=== PATIENT | female | born 1995 | race Hispanic/Latino ===

== ENCOUNTER 2021-08-22 15:31 | Day surgery (SDC) | payer OTHER ==
[2021-08-22 16:56] VITALS: BMI 26.9
[2021-08-22] MEDS ORDERED: hydrALAZINE 20 MG/ML VIAL SLOW IVP PRN (17:15)
== END 2021-08-22 18:08 | disposition home or self-care (01) ==
LOC: CSHLD/OP 15:31
PROVIDERS: ATTEND Obstetrics & Gynecology
DX: O36.8330 Maternal care for abnormalities of the fetal heart rate or rhythm, third trimester, not applicable or unspecified (principal); O09.33 Supervision of pregnancy with insufficient antenatal care, third trimester; O99.820 Streptococcus B carrier state complicating pregnancy; Z3A.38 38 weeks gestation of pregnancy; Z86.16 Personal history of COVID-19
CPT/HCPCS: 76819

== ENCOUNTER 2021-08-30 22:24 | Inpatient (IN) | payer OTHER, SELFPAY ==
[2021-08-30 22:39] VITALS: BMI 32.5
[2021-08-30] MEDS ORDERED: hydrALAZINE 20 MG/ML VIAL SLOW IVP PRN (23:19)
[2021-08-30] MEDS ORDERED: Ondansetron PF 4 MG/2 ML Vial IVP PRN (23:19)
[2021-08-30] MEDS ORDERED: Lidocaine 1% (PF) 30 ML VIAL SC PRN (23:19)
[2021-08-30] MEDS ORDERED: Ibuprofen 800 MG TAB PO PRN (23:19)
[2021-08-30] MEDS ORDERED: Carboprost 250 MCG/ML AMP IM PRN (23:19)
[2021-08-30] MEDS ORDERED: Misoprostol 200 MCG TAB PR PRN (23:19)
[2021-08-30] MEDS ORDERED: Acetaminophen 500 MG TAB PO PRN (23:19)
[2021-08-30] MEDS ORDERED: Methylergonovine 0.2 MG/ML VIAL IM PRN (23:19)
[2021-08-30] MEDS ORDERED: Promethazine HCl 25 MG/ML VIAL IM PRN (23:19)
[2021-08-30] MEDS ORDERED: Penicillin G Potassium 5 MILL.UNITS in Sodium Chloride 0.9% 100 ML IVPB SCH (23:30)
[2021-08-30] MEDS ORDERED: Lactated Ringer's 1,000 ML IV SCH (23:30)
[2021-08-30] MEDS ORDERED: NS w/ Oxytocin 30 units 500 ML IV SCH (23:30)
[2021-08-30] MEDS ORDERED: Penicillin G Potassium 5 MILL.UNITS VIAL ONE (23:36)
[2021-08-30 23:54] LABS: Hemoglobin 13.6 g/dL (12.0-15.5); Mean Corpuscular Hemoglobin 26.9 pg (27.0-33.0); Mean Corpuscular Volume 81.6 fl (81.6-98.3); Mean Platelet Volume 11.4 fl (7.4-10.4); Platelet Count 215 10x3/uL (150-450); RBC Distribution Width 14.7 % (11.5-14.5); Red Blood Cell (RBC) Count 5.05 10x6/uL (3.90-5.03); White Blood Cell (WBC) Count 6.9 10x3/uL (3.5-10.5)
[2021-08-31 00:20] LABS: SARS-CoV-2 NAA Rapid Test Not Detected (NotDetected)
[2021-08-31 00:23] LABS: Syphilis Antibody Nonreactive (Nonreactive); Syphilis Antibody Index 0.04 S/CO (<1.00 Non-Reactive)
[2021-08-31 00:42] LABS: Hep B Surf Ag Non-Reactive S/CO (NonReactive)
[2021-08-31 00:46] LABS: HBSAg Index 0.21 S/CO (0-0.99)
[2021-08-31] MEDS ORDERED: Methylergonovine 0.2 MG/ML VIAL ONE (02:46)
[2021-08-31] MEDS ORDERED: Misoprostol 200 MCG TAB ONE (02:46)
[2021-08-31] MEDS: NS w/ Oxytocin 30 units 500 ML IV SCH ×2 (02:48→04:52)
[2021-08-31] MEDS ORDERED: Penicillin G 2.5 MILL.units 2.5 MILL.UNITS in Premix Bag 1 BAG IVPB SCH (03:30)
[2021-08-31] MEDS ORDERED: Ondansetron PF 4 MG/2 ML Vial IVP PRN (05:57)
[2021-08-31] MEDS ORDERED: Promethazine HCl 25 MG/ML VIAL IM PRN (05:57)
[2021-08-31] MEDS ORDERED: Benzocaine-Menthol 82.5 ML CAN TOP PRN (05:57)
[2021-08-31] MEDS ORDERED: NS w/ Oxytocin 30 units 500 ML IV SCH (05:57)
[2021-08-31] MEDS ORDERED: Preparation H Ointment 28 GM TUBE PR PRN (05:57)
[2021-08-31] MEDS ORDERED: Boostrix 0.5 ML (Tdap) VIAL IM ONE (05:57)
[2021-08-31] MEDS ORDERED: Methylergonovine 0.2 MG/ML VIAL IM PRN (05:57)
[2021-08-31] MEDS ORDERED: hydrALAZINE 20 MG/ML VIAL SLOW IVP PRN (05:57)
[2021-08-31] MEDS ORDERED: Milk Of Magnesia 30 ML UDCUP PO PRN (05:57)
[2021-08-31] MEDS ORDERED: Misoprostol 200 MCG TAB VAG PRN (05:57)
[2021-08-31] MEDS ORDERED: Bisacodyl 10 MG SUPP PR PRN (05:57)
[2021-08-31] MEDS ORDERED: diphenhydrAMINE 25 MG CAP PO PRN (05:57)
[2021-08-31] MEDS: Prenatal Vitamin 1 TAB PO SCH (08:17)
[2021-08-31] MEDS: Ferrous Sulfate 325 MG TAB PO SCH ×2 (08:17→16:11)
[2021-08-31] MEDS: Docusate Calcium (SURFAK) 240 MG CAP PO SCH ×2 (08:17→21:57)
[2021-08-31] MEDS: Ibuprofen 800 MG TAB PO SCH ×2 (11:09→21:56)
[2021-09-01] MEDS: Ibuprofen 800 MG TAB PO SCH ×2 (04:56→12:07)
[2021-09-01 08:31] VITALS: BP 96/56; TEMP 97.4
[2021-09-01] MEDS: Docusate Calcium (SURFAK) 240 MG CAP PO SCH (08:58)
[2021-09-01] MEDS: Ferrous Sulfate 325 MG TAB PO SCH ×2 (08:58→16:26)
[2021-09-01] MEDS: Prenatal Vitamin 1 TAB PO SCH (08:58)
== END 2021-09-01 17:00 | disposition home or self-care (01) | DRG 807 ==
LOC: CSHLD/OP 22:24 → CSHLD 23:15 → CSHPP 08-31 05:12
PROVIDERS: ADMIT Obstetrics & Gynecology; ATTEND Obstetrics & Gynecology
PROC: 10E0XZZ Delivery of Products of Conception, External Approach (ICD-10-PCS; principal; 2021-08-31)
PROC: 30233S1 Transfusion of Nonautologous Globulin into Peripheral Vein, Percutaneous Approach (ICD-10-PCS; 2021-08-31)
DX: O99.824 Streptococcus B carrier state complicating childbirth (principal); O69.81X0 Labor and delivery complicated by cord around neck, without compression, not applicable or unspecified; Z20.822 Contact with and (suspected) exposure to COVID-19; Z3A.39 39 weeks gestation of pregnancy; Z37.0 Single live birth
CPT/HCPCS: 36415; 85027; 85461; 86780; 86850; 86870; 86900; 86901; 87340; 90384; 96372; 99285; J2540; J2590; J7120; U0002

== ENCOUNTER 2023-03-06 04:26 | Inpatient (IN) | payer MEDICAID, OTHER ==
[2023-03-06] MEDS ORDERED: Misoprostol 200 MCG TAB ONE (04:39)
[2023-03-06] MEDS ORDERED: Methylergonovine 0.2 MG/ML VIAL ONE (04:39)
[2023-03-06] MEDS ORDERED: Tranexamic Acid 1,000 MG/10 ML VIAL ONE (04:39)
[2023-03-06] MEDS ORDERED: Carboprost 250 MCG/ML AMP ONE (04:39)
[2023-03-06] MEDS ORDERED: NS w/ Oxytocin 30 units 500 ML ONE (04:40)
[2023-03-06] MEDS ORDERED: Oxytocin 10 UNITS/ML VIAL ONE (04:40)
[2023-03-06 04:47] VITALS: BMI 31.7
[2023-03-06] MEDS ORDERED: Diphenoxylate HCl/Atropine Tablet PO PRN ×2 (04:49)
[2023-03-06] MEDS ORDERED: Ondansetron PF 4 MG/2 ML Vial IVP PRN (04:49)
[2023-03-06] MEDS ORDERED: Acetaminophen 500 MG TAB PO PRN (04:49)
[2023-03-06] MEDS ORDERED: Promethazine HCl 25 MG/ML VIAL IM PRN (04:49)
[2023-03-06] MEDS ORDERED: hydrALAZINE 20 MG/ML VIAL SLOW IVP PRN (04:49)
[2023-03-06] MEDS ORDERED: Methylergonovine 0.2 MG/ML VIAL IM PRN (04:49)
[2023-03-06] MEDS ORDERED: Ibuprofen 800 MG TAB PO PRN (04:49)
[2023-03-06] MEDS ORDERED: Lidocaine 1% (PF) 30 ML VIAL SC PRN (04:49)
[2023-03-06] MEDS ORDERED: Misoprostol 200 MCG TAB PR PRN (04:49)
[2023-03-06] MEDS ORDERED: Carboprost 250 MCG/ML AMP IM PRN (04:49)
[2023-03-06] MEDS ORDERED: Tranexamic Acid 1,000 MG/10 ML VIAL IVP PRN (04:49)
[2023-03-06] MEDS ORDERED: NS w/ Oxytocin 30 units 500 ML IV SCH (05:00)
[2023-03-06] MEDS ORDERED: fentaNYL 50 mcg/mL 1 mL Vial ONE (05:15)
[2023-03-06 05:59] LABS: Hemoglobin 13.3 g/dL (12.0-15.5); Mean Corpuscular HGB CONC 34.6 g/dL (32.0-36.0); Mean Corpuscular Hemoglobin 29.1 pg (27.0-33.0); Platelet Count 173 10x3/uL (150-450); Red Blood Cell (RBC) Count 4.57 10x6/uL (3.90-5.03); White Blood Cell (WBC) Count 8.4 10x3/uL (3.5-10.5)
[2023-03-06 06:24] LABS: HIV (1/2) Antibody/Antigen Non-Reactive (NonReactive); HIV 1/2 INDEX 0.08 S/CO (<1.00)
[2023-03-06 06:26] LABS: Syphilis Antibody Nonreactive (Nonreactive); Syphilis Antibody Index 0.07 S/CO (<1.00 Non-Reactive)
[2023-03-06 07:34] LABS: HBSAg Index 0.14 S/CO (0-0.99); Hep B Surf Ag - L&D Non-Reactive S/CO (NonReactive)
[2023-03-06] MEDS ORDERED: Bisacodyl 10 MG SUPP PR PRN (07:39)
[2023-03-06] MEDS ORDERED: Milk Of Magnesia 30 ML UDCUP PO PRN (07:39)
[2023-03-06] MEDS ORDERED: Boostrix 0.5 ML (Tdap) VIAL (>/=7 yrs of age) IM ONE (07:39)
[2023-03-06] MEDS ORDERED: Benzocaine-Menthol 82.5 ML CAN TOP PRN (07:39)
[2023-03-06] MEDS: Ferrous Sulfate 325 MG TAB PO SCH ×2 (09:42→17:03)
[2023-03-06] MEDS: Docusate 100 MG CAP PO SCH ×2 (09:50→21:17)
[2023-03-06] MEDS: Ibuprofen 800 MG TAB PO SCH ×2 (14:17→21:17)
[2023-03-07] MEDS: Ibuprofen 800 MG TAB PO SCH ×3 (05:47→22:34)
[2023-03-07] MEDS: Ferrous Sulfate 325 MG TAB PO SCH ×2 (07:32→16:42)
[2023-03-07] MEDS: Docusate 100 MG CAP PO SCH ×2 (08:25→22:34)
[2023-03-08] MEDS: Ibuprofen 800 MG TAB PO SCH (05:32)
[2023-03-08 08:39] VITALS: BP 103/62; TEMP 97.9
[2023-03-08] MEDS: Ferrous Sulfate 325 MG TAB PO SCH (10:11)
[2023-03-08] MEDS: Docusate 100 MG CAP PO SCH (10:11)
== END 2023-03-08 10:40 | disposition home or self-care (01) | DRG 807 ==
LOC: CSHLD/OP 04:26 → CSHLD 05:01 → CSHPP 07:30
PROVIDERS: ADMIT Obstetrics & Gynecology; ATTEND Obstetrics & Gynecology
PROC: 10E0XZZ Delivery of Products of Conception, External Approach (ICD-10-PCS; principal; 2023-03-06)
PROC: 3E0234Z Introduction of Serum, Toxoid and Vaccine into Muscle, Percutaneous Approach (ICD-10-PCS; 2023-03-06)
DX: O99.824 Streptococcus B carrier state complicating childbirth (principal); Z37.0 Single live birth; O26.893 Other specified pregnancy related conditions, third trimester; Z67.11 Type A blood, Rh negative; Z3A.39 39 weeks gestation of pregnancy
CPT/HCPCS: 36415; 85027; 85461; 86780; 86850; 86900; 86901; 87340; 87389; 90384; 96372; 99285; J2210; J2590; J3010; J3490